=== PATIENT | male | born 1980 | race Caucasian/White ===

== ENCOUNTER 2017-06-29 19:33 | Emergency (ER) | payer OTHER ==
[2017-06-29 20:10] VITALS: BP 124/68
== END 2017-06-29 20:13 | disposition left against medical advice (07) ==
LOC: UCCORT 19:33
DX: J02.8 Acute pharyngitis due to other specified organisms (principal); Z53.21 Procedure and treatment not carried out due to patient leaving prior to being seen by health care provider